=== PATIENT | female | born 1960 | race Caucasian/White ===

== ENCOUNTER 2016-03-07 08:51 | Inpatient (IN) | payer BC ==
[2016-03-07] VITALS (13 sets, daily range): BP systolic 141; BP diastolic 101; PULSE 154; TEMP 98.4; O2SAT 61–95
[~2016-03-07] VITALS: Ht 160 cm; Wt 108.2 kg
[2016-03-07 09:53] LABS: ARTERIAL BLD GAS O2 SATURATION 95.8 % (92-100); ARTERIAL BLD GAS TCO2 CT 11.9; ARTERIAL BLOOD GAS BASE EXCESS -12.5 (-2-2); ARTERIAL BLOOD GAS HCO3 11.2 meq/L (22-26); ARTERIAL BLOOD GAS PHT 7.32 C (7.35-7.45); ARTERIAL BLOOD GAS PO2 82.5 mmHg (80-100); ARTERIAL BLOOD GAS PO2T 82.5 (80-100); ARTERIAL BLOOD GAS pH 7.32 (7.35-7.45); OXYHEMOGLOBIN 94.8 %
[2016-03-07 09:55] LABS: ATS? YES
[2016-03-07 09:59] LABS: PH 5 (5-8); SQUAMOUS EPITHELIAL 20-50 /hpf; URINE APPEARANCE Turbid; URINE BACTERIA Occasional /hpf; URINE BILIRUBIN Positive (NEGATIVE); URINE BLOOD 3+ (NEGATIVE); URINE COLOR Amber; URINE GLUCOSE 3+ (NEGATIVE); URINE KETONE Trace (NEGATIVE); URINE RBC 20-50 /hpf; URINE UROBILINOGEN >=4.0 mg/dL (NEGATIVE); URINE WBC >50 /hpf
[2016-03-07 10:20] LABS: HEMATOCRIT 46.8 % (37.0-47.0); HEMOGLOBIN 16.4 g/dl (12.5-16.0); MEAN CELL VOLUME 80 fl (80.0-100.0); MEAN CORPUSCULAR HEMOGLOBIN 28 pg (27.0-31.0); MEAN CORPUSCULAR HGB CONC 35 g/dl (33.0-37.0); MEAN PLATELET VOLUME 11.4 fl (7.4-10.4); PLATELET COUNT 295 K/mm3 (130-400); RED BLOOD COUNT 5.83 M/mm3 (4.10-5.30); REDCELL DISTRIBUTION WIDTH-CV 12.8 % (11.5-14.5)
[2016-03-07 10:24] LABS: INR 1.2 (0.8-3.0); PROTHROMBIN TIME 13.7 SECONDS (9.7-12.8)
[2016-03-07 10:26] LABS: ADD PATHOLOGY DIFF REVIEW NO
[2016-03-07 10:27] LABS: PARTIAL THROMBOPLASTIN TIME 29.1 SECONDS (26.0-37.0)
[2016-03-07 10:30] LABS: ALBUMIN 3.2 gm/dL (3.5-5.0); BILIRUBIN,TOTAL 1.4 mg/dL (0.0-1.0); CREATININE, serum 1.35 mg/dL (0.52-1.25); TOTAL PROTEIN 6.6 gm/dL (6.4-8.2)
[2016-03-07 10:38] LABS: BAND 46 % (0-10); METAMYELOCYTE 1 % (0-0); NEUTROPHILS 38 % (42.0-75.2); PLATELET ESTIMATE NORMAL (NORMAL); TOTAL CELLS COUNTED 100
[2016-03-07 10:44] LABS: ADJUSTED CALCIUM 15.2 mg/dL (8.4-10.2)
[2016-03-07 10:47] LABS: CALCIUM 14.6 mg/dL (8.4-10.2); POTASSIUM 2.8 mmol/L (3.4-5.0)
[2016-03-07 10:52] LABS: TROPONIN-I 0.314 ng/mL (0.000-0.034)
== END 2016-03-07 16:00 | disposition expired | DRG 871 ==
LOC: COL.ER 08:51 → ICU 10:55
PROVIDERS: Family Medicine
PROC: 0BH17EZ Insertion of Endotracheal Airway into Trachea, Via Natural or Artificial Opening (ICD-10-PCS; principal; 2016-03-07)
DX: A41.9 Sepsis, unspecified organism (principal); E05.01 Thyrotoxicosis with diffuse goiter with thyrotoxic crisis or storm; E13.11 Other specified diabetes mellitus with ketoacidosis with coma; I21.4 Non-ST elevation (NSTEMI) myocardial infarction; N39.0 Urinary tract infection, site not specified; Z68.41 Body mass index [BMI] 40.0-44.9, adult; Z51.5 Encounter for palliative care; E66.01 Morbid (severe) obesity due to excess calories; E87.6 Hypokalemia; E83.52 Hypercalcemia; I48.91 Unspecified atrial fibrillation
CPT/HCPCS: A4315; C1751; C1894; J0171; J0282; J0696; J1160; J1815; J2060; J2250; J2270; J7030; J7050; J7060